=== PATIENT | female | born 1975 | race Caucasian/White ===

== ENCOUNTER 2021-01-22 11:43 | Emergency (ER) | payer OTHER ==
[~2021-01-22] VITALS: Ht 162.6 cm; Wt 115.5 kg
[~2021-01-22 11:43] MED LIST: CEPHALEXIN500 M1 PO; VICODIN 5/5001 UDTAB PO; valtrex PO
[2021-01-22 12:15] VITALS: TEMP 96.5
[2021-01-22] MEDS ORDERED: GLUCOPHAGE500 MG/TAB PO (13:02)
[2021-01-22] MEDS ORDERED: DESYREL DIVIDO150 M1 PO (13:03)
[2021-01-22] MEDS ORDERED: BYDUREON B2 MG/0.85 (13:04)
[2021-01-22 13:14] LABS: BASO % 0.4 % (0.0-2.0); EOS # 0.1 (0.0-0.7); EOS % 1.1 % (0-4.0); GRAN % 62.9 % (42.2-75.2); HEMATOCRIT 39.3 % (37.0-47.0); HEMOGLOBIN 13.3 g/dl (12.5-16.0); LYMPH # 2.8 (1.2-3.4); LYMPH % 29.1 % (20.0-51.0); MEAN CELL VOLUME 81 fl (80.0-100.0); MEAN CORPUSCULAR HEMOGLOBIN 27 pg (27.0-31.0); MEAN CORPUSCULAR HGB CONC 34 g/dl (33.0-37.0); MONO # 0.6 (0.1-0.6); MONO % 6.2 % (1.7-9.3); PLATELET COUNT 353 K/mm3 (130-400); RED BLOOD COUNT 4.88 M/mm3 (4.10-5.30); REDCELL DISTRIBUTION WIDTH-CV 12.4 % (11.5-14.5)
[2021-01-22 13:30] LABS: ALBUMIN 3.4 gm/dL (3.5-5.0); BILIRUBIN,TOTAL 0.6 mg/dL (0.0-1.0); CALCIUM 9.4 mg/dL (8.4-10.2); CREATININE, serum 1.33 (0.52-1.25); POTASSIUM 4.1 mmol/L (3.4-5.0); TOTAL PROTEIN 7.4 gm/dL (6.4-8.2)
[2021-01-22 14:42] LABS: COLLECTION METHOD CLEAN CATCH
[2021-01-22 14:57] LABS: MUCOUS Present /lpf; PH 5 (5-8); URINE APPEARANCE Turbid; URINE BACTERIA Occasional /hpf; URINE BILIRUBIN Negative (NEGATIVE); URINE BLOOD 2+ (NEGATIVE); URINE COLOR Amber; URINE GLUCOSE 2+ (NEGATIVE); URINE KETONE Negative (NEGATIVE); URINE LEUKOCYTE ESTERASE Negative (NEGATIVE); URINE NITRATE Negative (NEGATIVE); URINE PROTEIN(semi-quant) 2+ (NEGATIVE); URINE RBC >50 /hpf; URINE UROBILINOGEN Negative (NEGATIVE)
[2021-01-22 15:53] VITALS: BP 134/88
[2021-01-22] MEDS ORDERED: ZOFRAN ODT4 MG PO (16:00)
[2021-01-22 16:21] VITALS: PULSE 104
== END 2021-01-22 16:20 | disposition home or self-care (01) ==
LOC: COL.ER 11:43
PROVIDERS: Physician Assistant
DX: R11.2 Nausea with vomiting, unspecified (principal); E11.9 Type 2 diabetes mellitus without complications; Z79.84 Long term (current) use of oral hypoglycemic drugs; Z20.822 Contact with and (suspected) exposure to COVID-19
CPT/HCPCS: J1200; J2405; J2765; J7120

== ENCOUNTER → 2021-05-12 | Outpatient (CLI) | payer OTHER ==
[~2021-05-12] MED LIST changes: +BYDUREON B2 MG/0.85; +DESYREL DIVIDO150 M1 PO; +GLUCOPHAGE500 MG/TAB PO; +ZOFRAN ODT4 MG PO
== END ==
LOC: MC.RAD 14:04
DX: Z12.31 Encounter for screening mammogram for malignant neoplasm of breast (principal); N64.89 Other specified disorders of breast

== ENCOUNTER → 2021-05-19 | Outpatient (CLI) | payer OTHER | LOC: MC.RAD 09:00 | DX: N64.89 Other specified disorders of breast (principal); N63.10 Unspecified lump in the right breast, unspecified quadrant ==

== ENCOUNTER → 2021-05-24 | Outpatient (CLI) | payer OTHER | LOC: MC.RAD 06:48 | DX: N64.89 Other specified disorders of breast (principal); N62 Hypertrophy of breast ==

== ENCOUNTER 2023-11-05 13:19 | Inpatient (IN) | payer OTHER ==
[~2023-11-05] VITALS: Ht 162.6 cm; Wt 134.3 kg
[2023-11-05 15:13] LABS: COLLECTION METHOD CLEAN CATCH
[2023-11-05 15:18] LABS: ALBUMIN 1.9 gm/dL (3.5-5.0); BILIRUBIN,TOTAL 0.2 mg/dL (0.2-1.2); CALCIUM 8.4 mg/dL (8.4-10.2); CREATININE, serum 3.18 mg/dL (0.57-1.11); POTASSIUM 4.2 mmol/L (3.5-4.5); TOTAL PROTEIN 6.6 gm/dL (6.2-8.1)
[2023-11-05 15:24] LABS: URINE APPEARANCE Clear (CLEAR/HAZY); URINE BLOOD 2+ (NEGATIVE); URINE COLOR Yellow (YELLOW); URINE GLUCOSE TRACE (NEGATIVE); URINE KETONE Negative (NEGATIVE); URINE NITRATE Negative (NEGATIVE); URINE PROTEIN(semi-quant) 3+ (NEGATIVE); URINE UROBILINOGEN 0.2 E.U/dL (0.2-1.0)
[2023-11-05 15:42] LABS: SQUAMOUS EPITHELIAL 0-2 /hpf (0-10)
[2023-11-05 15:43] LABS: URINE BACTERIA Rare /hpf (NONE SEEN)
[2023-11-05 15:44] LABS: BASO % 0.3 % (0.0-2.0); EOS # 0.1 K/mm3 (0.0-0.7); EOS % 0.6 % (0.0-4.0); GRAN # 7.7 K/mm3 (1.4-6.5); GRAN % 67.2 % (42.2-75.2); HEMOGLOBIN 10.6 g/dl (12.5-16.0); LYMPH # 2.5 K/mm3 (1.2-3.4); LYMPH % 21.6 % (20.0-51.0); MEAN CELL VOLUME 82 fl (80.0-100.0); MEAN CORPUSCULAR HEMOGLOBIN 26 pg (27-31); MEAN CORPUSCULAR HGB CONC 32 g/dl (33.0-37.0); MEAN PLATELET VOLUME 9.7 fl (7.4-10.4); MONO # 1.1 K/mm3 (0.1-0.6); MONO % 9.7 % (1.7-9.3); PLATELET COUNT 219 K/mm3 (130-400); RED BLOOD COUNT 4.02 M/mm3 (4.10-5.30); REDCELL DISTRIBUTION WIDTH-CV 13.9 % (11.5-14.5)
[2023-11-05 15:48] LABS: HEMATOCRIT 32.8 % (37.0-47.0)
[2023-11-05 15:52] LABS: PROTHROMBIN TIME 10.7 SECONDS (9.7-12.8)
[2023-11-05 15:55] LABS: PARTIAL THROMBOPLASTIN TIME 22.3 SECONDS (26.0-37.0)
[2023-11-05] MEDS ORDERED: LEVEMIR FLEX100 U/ML SQ (17:53)
[2023-11-05] MEDS ORDERED: EXCEDRIN1 TAB PO (17:56)
[2023-11-05] MEDS ORDERED: LEXAPRO 10MG10 MG PO (17:57)
[2023-11-05] MEDS ORDERED: NORVASC 10MG10 MG PO (17:58)
[2023-11-05] MEDS ORDERED: PRINIVIL10 MG PO (17:58)
[2023-11-05 20:28] VITALS: BP 126/73; PULSE 104; TEMP 97.9
[2023-11-05 21:48] VITALS: BP_SYST 126
--- NOTE | 2023-11-05 22:00 | NUR ---
Admitted to medical floor from ER, had SOB, elevated d-dimer, VSS, Alert/oriented x4, Up in room, steady on feet, did just collect the RVP- will send down to lab, Bicarb IV fluids infusing at 100cc/hr, and heparin drip infusing at 18cc/hr [1800units/hr}. Next hepxa at 2330. Urine specimens obtained and sent to lab. PICC line was started in ER to right upper arm. Tele on. Echo in AM.
[2023-11-05 22:54] VITALS: BP 145/81; PULSE 88; TEMP 98.1
--- NOTE | 2023-11-05 23:35 | NUR ---
Did request for o2 just for comfort-- sats on RA 93-95%,, put on o2 at 2L/nc.
[2023-11-06] VITALS (12 sets, daily range): BP systolic 135–169; BP diastolic 65–82; PULSE 89–952; TEMP 97.5–98.6
[2023-11-06 04:19] LABS: BASO % 0.2 % (0.0-2.0); GRAN # 7.5 K/mm3 (1.4-6.5); GRAN % 84.8 % (42.2-75.2); LYMPH # 1.1 K/mm3 (1.2-3.4); LYMPH % 12.6 % (20.0-51.0); MEAN CELL VOLUME 81 fl (80.0-100.0); MEAN CORPUSCULAR HGB CONC 33 g/dl (33.0-37.0); MEAN PLATELET VOLUME 10.1 fl (7.4-10.4); MONO # 0.1 K/mm3 (0.1-0.6); MONO % 1.6 % (1.7-9.3); PLATELET COUNT 203 K/mm3 (130-400); RED BLOOD COUNT 3.55 M/mm3 (4.10-5.30)
[2023-11-06 04:32] LABS: HEMATOCRIT 28.8 % (37.0-47.0); HEMOGLOBIN 9.5 g/dl (12.5-16.0); MEAN CORPUSCULAR HEMOGLOBIN 27 pg (27-31)
[2023-11-06 04:34] LABS: CALCIUM 7.7 mg/dL (8.4-10.2); CHOLESTEROL RISK RATIO 4.7; CREATININE, serum 3.38 mg/dL (0.57-1.11); POTASSIUM 4.4 mmol/L (3.5-4.5)
--- NOTE | 2023-11-06 05:10 | NUR ---
Has been sleeping well for the past couple hours, heparin drip now infusing at 15cc/hr after being on hold for 2 hours per protocol- next hepxa at 1100 this morning. Jackelyn GONZALEZ is aware that her RVP came back as positive for RSV. On Droplet/Contact Isolation.
--- NOTE | 2023-11-06 07:00 | NUR ---
PT RESTING IN BED. PT IS ON RA. PT IS SR ON TELE. PT IS AXOX3. PT HAS CALL LIGHT AND INSTRUCTED TO CALL WITH ALL NEEDS.
--- NOTE | 2023-11-06 09:04 | NUR ---
PT STATES BREATHING IS BETTER. PT HAS A COUGH BUT STATES IT IS NON PRODUCTIVE. THIS RN RECEIVED A CALL FROM [facility] STATING THEY PLAN TO DO HER VQ SCAN AT 1330 BUT WILL TRY TO GET HER EARLIER IF POSSIBLE. PT UPDATED.
--- NOTE | 2023-11-06 09:20 | NUR ---
PT STATES HER BREATHING IS BETTER THAN LAST NIGHT. PT STATES SHE DOES HAVE A COUGH BUT IT IS NON PRODUCTIVE. [facility] STATES THEY PLAN TO DO HER VQ SCAN AT 1330 BUT WILL TRY TO GET HER EARLIER IF POSSIBLE. PT UPDATED.
[2023-11-06] MEDS ORDERED: PREDFORTE5ML OU (11:08)
[2023-11-06] MEDS ORDERED: VOLTAREN OU (11:12)
--- NOTE | 2023-11-06 14:25 | NUR ---
PT TAKEN DOWN TO [facility] FOR VQ SCAN. TELE NOTIFIED.
--- NOTE | 2023-11-06 14:43 | NUR ---
Machine Splitter attempted to contact Patient via bed phone due to Patient's droplet isolation status without success. Machine Splitter attempted to contact Patient's son via contact information on chart and was unable to leave a voicemail.
[2023-11-06 15:00] LABS: COMPLEMENT-C3 147 mg/dL (83-193); COMPLEMENT-C4 40 mg/dL (15-57)
--- NOTE | 2023-11-06 17:41 | NUR ---
1700-PTS VQ SCAN SHOWS LOW PROBABILITY OF PE. DISCUSSED WITH Dalia CORRALES ORDER TO DC HEPARIN DRIP.
--- NOTE | 2023-11-06 18:50 | NUR ---
bedside shift report received from Desean RN, denies needs
--- NOTE | 2023-11-06 19:15 | NUR ---
asking to take a shower, IV fluids stopped and MBA INTERN in to assist her with getting into shower
--- NOTE | 2023-11-06 20:21 | NUR ---
shower completed and telemetry back on and IV fluids restarted
--- NOTE | 2023-11-06 21:20 | NUR ---
resting in bed watching TV, pm meds given, denies needs or pain
--- NOTE | 2023-11-06 22:50 | NUR ---
up to bathroom independently and is getting readya to sleep, denies needs
[2023-11-07] VITALS (7 sets, daily range): BP systolic 136–168; BP diastolic 67–76; PULSE 84–90; TEMP 97.3–97.7
--- NOTE | 2023-11-07 02:00 | NUR ---
appears to be sleeping
--- NOTE | 2023-11-07 04:05 | NUR ---
awake for vital signs, denies needs
--- NOTE | 2023-11-07 07:00 | NUR ---
PT RESTING IN BED PLAYING ON HER PHONE. PT IS ON RA. PT IS SR ON TELE. PT IS AXOX3. PT HAS CALL LIGHT AND INSTRUCTED TO CALL WITH ALL NEEDS. PT HAS IVF RUNNING THROUGH HER PICC LINE.
--- NOTE | 2023-11-07 07:04 | NUR ---
bedside shift report given to Precious Mckinley RN
--- NOTE | 2023-11-07 07:04 | NUR ---
bedside shift report given to DAYANARA Anton
[2023-11-07 08:28] LABS: MEAN CELL VOLUME 81 fl (80.0-100.0); MEAN CORPUSCULAR HGB CONC 32 g/dl (33.0-37.0); MEAN PLATELET VOLUME 9.9 fl (7.4-10.4); PLATELET COUNT 249 K/mm3 (130-400); RED BLOOD COUNT 3.71 M/mm3 (4.10-5.30); REDCELL DISTRIBUTION WIDTH-CV 14.2 % (11.5-14.5)
[2023-11-07 08:33] LABS: HEMATOCRIT 30.1 % (37.0-47.0); HEMOGLOBIN 9.7 g/dl (12.5-16.0); MEAN CORPUSCULAR HEMOGLOBIN 26 pg (27-31)
[2023-11-07 08:43] LABS: CALCIUM 7.9 mg/dL (8.4-10.2); CREATININE, serum 3.48 mg/dL (0.57-1.11); POTASSIUM 4.4 mmol/L (3.5-4.5)
[2023-11-07 09:05] LABS: C-ANCA 14 U/mL (0-99)
[2023-11-07 09:11] LABS: BAND 6 % (0-10); LYMPHOCYTE 13 % (20.0-51.0); NEUTROPHILS 81 % (42.0-75.2)
[2023-11-07 09:12] LABS: BURR CELLS 1+; OVALOCYTES 2+; PLATELET ESTIMATE NORMAL (NORMAL)
[2023-11-07] MEDS ORDERED: DOXYCYCLINE HY100 MG PO (10:52)
[2023-11-07] MEDS ORDERED: RT ADVAIR 228 DISKUS IH (10:54)
[2023-11-07] MEDS ORDERED: PREDNISONE20 MG PO (10:54)
[2023-11-07] MEDS ORDERED: APRESOLINE 25MG25 MG PO (10:55)
[2023-11-07] MEDS ORDERED: PROAIR HFA0.09 MG/AC IH (10:55)
[2023-11-07] MEDS ORDERED: ZEBETA 5MG5 MG PO (10:56)
[2023-11-07] MEDS ORDERED: SODIUM BICARBO650 MG PO (10:57)
--- NOTE | 2023-11-07 12:38 | NUR ---
IV AND TELE DC'D. FLU VACCINE GIVEN. EDUCATION GIVE. DISCHARGE INSTRUCTIONS DISCUSED. FOLLOW UP APPOINTMENTS DISCUSSED. NEW MEDICATIONS DISCUSSED. COUPONS AND GOOD RX OPTIONS DISCUSSED AND GIVEN TO PT. ALL QUESTIONS ANSWERED. PT AWAITING SON FOR RIDE HOME. INSTRUCTED PT TO CALL WHEN READY TO LEAVE.
--- NOTE | 2023-11-07 13:20 | NUR ---
Per Diem Rn met with patient to discuss discharge planning. Patient lives in [place] and advised her son, Edgar (age 21) lives with her. Patient sees Dr. Queen at [facility] for [facility] care and obtains medications from [facility] on [address]. Patient advised normally she can afford her medications but is worried about how much her discharge medications will be. SW encouraged patient to reach out to if she finds they are too expensive. Patient is employed and independent with [employer]. Patient plans to return home at time of discharge. Patient would like to complete DPOA-HC while here and wants to designate her children: nAthony (age 19). SW assisted patient in completing the form, then along with LESLIE Grady, provided witness signature. SW placed a copy in patient's chart then provided original and copies to patient. Discharge Plan: Home
--- NOTE | 2023-11-07 13:30 | NUR ---
PT WHEELED OUT FOR DISCHARGE BY NUZHAT YO. ACCOMPAINED BY JULIAN.
== END 2023-11-07 13:30 | disposition home or self-care (01) | DRG 189 ==
LOC: COL.ER 13:19 → MEDICAL 17:26
PROVIDERS: Emergency Medicine; Internal Medicine Nephrology; Physician Assistant; ADMIT Internal Medicine
DX: J96.01 Acute respiratory failure with hypoxia (principal); J18.9 Pneumonia, unspecified organism; I31.39 Other pericardial effusion (noninflammatory); N17.9 Acute kidney failure, unspecified; E11.9 Type 2 diabetes mellitus without complications; Z79.4 Long term (current) use of insulin; I12.9 Hypertensive chronic kidney disease with stage 1 through stage 4 chronic kidney disease, or unspecified chronic kidney disease; E11.22 Type 2 diabetes mellitus with diabetic chronic kidney disease; N18.9 Chronic kidney disease, unspecified; K21.9 Gastro-esophageal reflux disease without esophagitis; D63.1 Anemia in chronic kidney disease; G47.00 Insomnia, unspecified; E66.01 Morbid (severe) obesity due to excess calories; Z68.34 Body mass index [BMI] 34.0-34.9, adult
CPT/HCPCS: A9540-JZ; A9567-JZ; C1751; J0692; J1644; J1815; J7030; J7120; J7512

== ENCOUNTER 2024-02-10 09:54 | Outpatient (CLI) | payer OTHER ==
[~2024-02-10] VITALS: Ht 162.7 cm; Wt 131.0 kg
[2024-02-10] VITALS (8 sets, daily range): BP systolic 125–189; BP diastolic 74–111; PULSE 103–107; TEMP 97
[~2024-02-10 09:54] MED LIST changes: +APRESOLINE 25MG25 MG PO; +DOXYCYCLINE HY100 MG PO; +EXCEDRIN1 TAB PO; +LEVEMIR FLEX100 U/ML SQ; +LEXAPRO 10MG10 MG PO; +NORVASC 10MG10 MG PO; +PREDFORTE5ML OU; +PREDNISONE20 MG PO; +PRINIVIL10 MG PO; +PROAIR HFA0.09 MG/AC IH; +RT ADVAIR 228 DISKUS IH; +SODIUM BICARBO650 MG PO; +VOLTAREN OU; +ZEBETA 5MG5 MG PO
[2024-02-10] MEDS ORDERED: Ondansetron 4 MG TAB PO ONE (11:00)
[2024-02-10] MEDS ORDERED: ceFAZolin 1 G in Water For Injection,Sterile 10 ML IV SCH (11:00)
[2024-02-10] MEDS ORDERED: ceFAZolin 2 G in Water For Injection,Sterile 20 ML IV SCH (11:15)
[2024-02-10] MEDS ORDERED: BUMEX2 MG PO (11:29)
[2024-02-10] MEDS ORDERED: FARXIGA10 PO (11:30)
[2024-02-10] MEDS ORDERED: APRESOLINE50 MG PO (11:31)
[2024-02-10] MEDS ORDERED: ZESTRIL 20MG TA20 MG PO (11:32)
--- NOTE | 2024-02-10 12:44 | NUR ---
SEE MERGE FOR PROCEDURE DOCUMENTATION
[2024-02-10] MEDS ORDERED: Ondansetron 4 MG/2 ML VIAL IV SCH (13:32)
[2024-02-10] MEDS ORDERED: Heparin 1,000 UNITS/ML 10 ML Multi-Dose VIAL ICA SCH (13:32)
[2024-02-10] MEDS ORDERED: fentaNYL 50 MCG/ML 2 ML VIAL IV SCH (13:34)
[2024-02-10] MEDS ORDERED: Midazolam 2 MG/2 ML VIAL IV SCH (13:35)
[2024-02-10] MEDS ORDERED: Lidocaine 2% w EPI (1:100,000) 20 ML Multi-Dose VIAL IJ SCH (13:37)
--- NOTE | 2024-02-10 14:00 | NUR ---
pt returned to eu 11 via bed from senior label specialist, awake, alert, denies pain or nausea. dressing to right chest is clean and dry, call light in reach, pt rests with eyes closed
--- NOTE | 2024-02-10 14:03 | NUR ---
PT ALERT AND ORIENTED, REPORTS NAUSEA IS IMPROVED WITH MEDICATION. PATIENT TRANFERRED TO BED VIA SLIDE BOARD AND TRANSPORTED TO [facility]. VITAL SIGNS TAKEN ON ARRIVAL, VSS. TRANSFER OF CARE TO DAYANARA SUBRAMANIAN. TDC SITE ASSESSED, DRESSING CDI. CALL LIGHT WITHIN REACH, BED IN LOWEST POSITION, X3 BEDRAILS IN PLACE.
--- NOTE | 2024-02-10 14:30 | NUR ---
pt sips on juice, meal ordered, no changes or c/o
--- NOTE | 2024-02-10 15:00 | NUR ---
pt up to b/r to void, tolerated well, sits on side of bed, dressing remains the same
--- NOTE | 2024-02-10 16:00 | NUR ---
pt ate lunch, tolerated well. iv d'cd intact. reviewed discharge inst. with pt on care of site, and moderate sedation. pt has dialysis in am, dressed, discharged at 1615 with son via w/c to car
== END 2024-02-10 16:15 ==
LOC: COL.CAR 09:54
DX: N17.9 Acute kidney failure, unspecified (principal); E11.9 Type 2 diabetes mellitus without complications
CPT/HCPCS: J0690; J1644; J2250; J2405; J3010

== ENCOUNTER 2024-05-13 12:06 | Outpatient (CLI) | payer OTHER ==
[2024-05-13] VITALS (9 sets, daily range): BP systolic 141–213; BP diastolic 78–116; PULSE 58–84; TEMP 97.1
[~2024-05-13] VITALS: Ht 162.7 cm; Wt 132.0 kg
[~2024-05-13 12:06] MED LIST changes: +APRESOLINE50 MG PO; +BUMEX 1MG TA1 MG/TA1 PO; +FARXIGA10 PO; +LANTUS100 U/ML SQ; -LEXAPRO 10MG10 MG PO; +LEXAPRO20 MG PO; +VITAMIN D31000 I1 PO; +ZESTRIL40 MG PO
[2024-05-13] MEDS ORDERED: TUMS500 MG PO (12:52)
[2024-05-13] MEDS ORDERED: ELIQUIS 5MG PO (12:52)
[2024-05-13] MEDS ORDERED: EXCEDRIN1 TAB PO (12:53)
[2024-05-13] MEDS ORDERED: SODIUM BICARBO650 MG PO (12:53)
[2024-05-13] MEDS ORDERED: ceFAZolin 1 G in Water For Injection,Sterile 10 ML IV SCH (13:15)
[2024-05-13] MEDS ORDERED: ceFAZolin 2 G in Water For Injection,Sterile 20 ML IV SCH (14:29)
--- NOTE | 2024-05-13 14:35 | NUR ---
SEE MERGE FOR PROCEDURE DOCUMENTATION
[2024-05-13] MEDS ORDERED: fentaNYL 50 MCG/ML 2 ML VIAL IV SCH (14:41)
[2024-05-13] MEDS ORDERED: Lidocaine 2% w EPI (1:100,000) 20 ML Multi-Dose VIAL IJ SCH (14:43)
[2024-05-13] MEDS ORDERED: Midazolam 2 MG/2 ML VIAL IV SCH (14:43)
[2024-05-13] MEDS ORDERED: Heparin 1,000 UNITS/ML 10 ML Multi-Dose VIAL ICA SCH (14:52)
--- NOTE | 2024-05-13 15:19 | NUR ---
PATIENT DROWSY BUT RESPONDS APPROPRIATELY, DENIES PAIN OR NAUSEA. PATIENT TRANSFERRED VIA SLIDEBOARD TO BED AND POSITIONED FOR COMFORT. DRESSING TO RIGHT PROXIMAL NECK NOTED TO BE SATURATED, DRESSING CHANGED PER HARRISON LANDISPRESS SERVICE READER. HYPERTENSION PERSISTS PER BASELINE. PATIENT TRANSPORTED VIA BED TO [facility]. VITAL SIGNS TAKEN, HYPERTENSION NOTED. DRESSING REASSESSED AND SCANT DRAINAGE NOTED, OUTLINED WITH PEN. TRANSFER OF CARE TO DAYANARA FRIEND. VITAL SIGNS CALLED TO DR. BROOKS PER RONNA, NO TREATMENT ORDERED FOR HYPERTENSION AT THIS TIME. TO CONTINUE TO MONITOR. BED PLACED IN LOWEST POSITION, X3 BEDRAILS IN PLACE, CALL LIGHT PLACED WITHIN REACH.
--- NOTE | 2024-05-13 15:20 | NUR ---
Pt returned from procedure.Small amount of drainage at right dressing site,site marked. Dr Waters notified by this nurse of patient's vital signs upon arrival of 213/116, pulse 84,95 % on room air.No new orders at this time.
--- NOTE | 2024-05-13 16:52 | NUR ---
Scant amount of drainage at dressign site to right chest still present at boarder.Discharge instructions given to pt.Pt verbalizes understanding.
--- NOTE | 2024-05-13 17:19 | NUR ---
Pt escortedout via wheelchair by this nurse.
== END 2024-05-13 17:20 ==
LOC: COL.CAR 12:06
DX: N18.9 Chronic kidney disease, unspecified (principal); Z99.2 Dependence on renal dialysis
CPT/HCPCS: J0690; J1644; J2250; J3010

== ENCOUNTER 2024-05-13 22:56 | Emergency (ER) | payer OTHER ==
[~2024-05-13] VITALS: Ht 162.6 cm; Wt 131.6 kg
[~2024-05-13 22:56] MED LIST changes: +ELIQUIS 5MG PO; +TUMS500 MG PO
[2024-05-14 00:20] VITALS: BP 148/60; PULSE 77
== END 2024-05-14 00:21 | disposition home or self-care (01) ==
LOC: COL.ER 22:56
DX: T82.838A Hemorrhage due to vascular prosthetic devices, implants and grafts, initial encounter (principal); E11.22 Type 2 diabetes mellitus with diabetic chronic kidney disease; N18.9 Chronic kidney disease, unspecified; Z99.2 Dependence on renal dialysis; Z79.01 Long term (current) use of anticoagulants
CPT/HCPCS: 21570; C1750

== ENCOUNTER 2024-09-10 07:50 | Day surgery (SDC) | payer OTHER ==
[~2024-09-10] VITALS: Ht 162.6 cm; Wt 123.6 kg
[~2024-09-10 07:50] MED LIST changes: +NS 1,000 ML IV SCH
[2024-09-10] MEDS ORDERED: Lidocaine PF 2% (20 MG/ML) 5 ML VIAL ONE (08:23)
[2024-09-10] MEDS ORDERED: fentaNYL 50 MCG/ML 2 ML VIAL ONE (08:23)
[2024-09-10] MEDS ORDERED: NS 10 ML IV ONE (08:23)
[2024-09-10] MEDS ORDERED: Ondansetron 4 MG/2 ML VIAL ONE (08:23)
[2024-09-10] MEDS ORDERED: Rocuronium 50 MG/5 ML Multi-Dose VIAL ONE (08:23)
[2024-09-10] MEDS ORDERED: fentaNYL 50 MCG/ML 1 ML SYRINGE/VIAL [PACU/SDC ONLY] IV PRN (09:00)
[2024-09-10] MEDS ORDERED: Ondansetron 4 MG/2 ML VIAL IV PRN ×2 (09:00→11:15)
[2024-09-10] MEDS ORDERED: Meperidine 50 MG/ML 1 ML VIAL IV PRN (09:00)
[2024-09-10] MEDS ORDERED: droPERidol 2.5 MG/ML 2 ML VIAL IV PRN (09:00)
[2024-09-10] MEDS ORDERED: HYDROmorphone 1 MG/1 ML SYRINGE [PACU/SDC ONLY] IV PRN (09:00)
[2024-09-10] MEDS ORDERED: Morphine 2 MG/1 ML VIAL [PACU/SDC ONLY] IV PRN (09:00)
[2024-09-10] MEDS ORDERED: hydrALAZINE 20 MG/ML 1 ML VIAL IV PRN (09:00)
[2024-09-10 09:02] VITALS: BP 121/70; PULSE 89; TEMP 98.5
[2024-09-10] MEDS ORDERED: NORVASC 5MG5 MG/TAB PO (09:08)
[2024-09-10] MEDS ORDERED: PRINIVIL20 MG PO (09:08)
[2024-09-10] MEDS ORDERED: LIPITOR 40MG TA40 MG PO (09:09)
[2024-09-10] MEDS ORDERED: PRIL40 PO (09:11)
[2024-09-10 09:34] LABS: CALCIUM 8.6 mg/dL (8.4-10.2); CREATININE, serum 4.83 mg/dL (0.57-1.11); POTASSIUM 4.6 mEq/L (3.5-4.5)
[2024-09-10] MEDS ORDERED: ePHEDrine 50 MG/ML VIAL ONE (10:38)
[2024-09-10] MEDS ORDERED: Topical Skin Adhesive 1 EACH (1 ML) TOP ONE (10:59)
[2024-09-10] MEDS ORDERED: NORCO 325 MG-51 TAB PO (11:10)
[2024-09-10] MEDS ORDERED: Acetaminophen 325 MG TAB PO PRN (11:15)
[2024-09-10 12:02] VITALS: BP 100/50; PULSE 86; TEMP 98.3
--- NOTE | 2024-09-10 12:02 | NUR ---
PATIENT RETURNS TO ROOM 7 PER CART ACCOMPANIED BY SENIOR ANIMAL TRAINER AND IS AWAKE AND ALERT. DRESSING ON ABDOMEN CLEAN AND DRY. IVF AT TKO. DENIES INCISIONAL PAIN OR NAUSEA. CALL LIGHT IN REACH. DRINKING WATER. REMAINS ON OXYGEN AT 2L. SATS DROP TO 90% WHEN RESTING.
[2024-09-10 12:17] VITALS: BP 93/56; PULSE 84
--- NOTE | 2024-09-10 12:17 | NUR ---
AWAKE AND EATING PUDDING. REMAINS ON OXYGEN. CONTINUES TO DENY PAIN OR NAUSEA.
[2024-09-10 12:32] VITALS: BP 97/51; PULSE 85
--- NOTE | 2024-09-10 12:32 | NUR ---
TOLERATES SNACK. OFFERS NO COMPLAINTS AND RESTS COMFORTABLY WHEN NOT DISTURBED.
[2024-09-10 12:49] VITALS: BP 111/58; PULSE 84
--- NOTE | 2024-09-10 12:49 | NUR ---
ABDOMINAL DRESSING REMAINS CLEAN AND DRY. DENIES ANY PAIN OR NAUSEA. IV DISCONTINUED.
--- NOTE | 2024-09-10 13:00 | NUR ---
PATIENT SITTING ON EDGE OF CART AND DRESSES SELF. TOLERATES ACTIVITY WELL. ABLE TO AMBULATE TO BATHROOM WITH STEADY GAIT. SON NOTIFIED AND WILL BE HERE AT 1330.
--- NOTE | 2024-09-10 13:31 | NUR ---
DISCHARGE INSTRUCTIONS WERE GIVEN AND SIGNED. ALL QUESTIONS WERE ANSWERED. PATIENT WAS TAKEN TO EMERGENCY ROOM ENTRANCE PER WHEELCHAIR BY CAMILO NICHOLE AND ASSISTE INTO PRIVATE VEHICLE AND DISCHARGED TO HOME.
== END 2024-09-10 13:31 | disposition home or self-care (01) ==
LOC: SDCO 07:50
PROVIDERS: Nurse Anesthetist, Certified Registered
DX: I12.0 Hypertensive chronic kidney disease with stage 5 chronic kidney disease or end stage renal disease (principal); E11.22 Type 2 diabetes mellitus with diabetic chronic kidney disease; N18.6 End stage renal disease; K21.9 Gastro-esophageal reflux disease without esophagitis; Z99.2 Dependence on renal dialysis; Z79.899 Other long term (current) drug therapy; Z79.01 Long term (current) use of anticoagulants; Z79.4 Long term (current) use of insulin; Z86.711 Personal history of pulmonary embolism
CPT/HCPCS: C1750; J0690; J2405; J2704; J3010; J7030